=== PATIENT | female | born 1955 ===

== ENCOUNTER 2019-10-23 08:00 | Inpatient (IN) | payer BC ==
[~2019-10-23 08:00] MED LIST: Acetaminophen 325 MG Tab PO SCH; Bisacodyl 5 MG Tab PO PRN; Lactated Ringers 1,000 ML IV SCH; Lidocaine 1%/Sod Bicarbonate in NS 8.4% 1 ML Syringe IDERM PRN; Magnesium Hydroxide 400 MG/5 ML Susp 30 ML Cup PO PRN; Morphine 2 MG/ML SYRINGE IVPUSH PRN; Naloxone 0.4 MG/ML SDV IVPUSH PRN; Ondansetron 4 MG/2 ML SDV IVPUSH PRN; Sennosides 8.6 MG Tab PO PRN; Sodium Chloride 0.9% 10 ML Syringe FLUSH PRN; oxyCODONE ER 10 MG TAB.ER PO SCH
--- NOTE | 2019-10-23 10:07 | PCM.CONS ---
H&P History of Present Illness - General Date of Service: 10/23/19 Admit Problem/Dx: Admission Diagnosis/Problem Admission Diagnosis/Problem Osteoarthritis of hip Source of Information: Patient, Provider, RN, RN Notes Reviewed History Limitations: Reports: No Limitations - History of Present Illness Initial Comments - Free Text/Narative: Munira Gonzales is a 64 yo female patient of Dr. Henning who is post-operative day 0 of right TKA. Hospital medicine was consulted for post-operative medical care of the following listed medical conditions. At this time she is resting comfortably in bed. Pain is controlled. She denies any chest pain, shortness of breath, palpitations, nausea, or vomiting. She carries a history of: HTN, HLD, Chronic edema, GERD, Prior C7 fracture, Depression, Recurrent UTI, Arthritis, Hx/o ETOH abuse, Insomnia. She is a former smoker. She is a full code. Her primary care provider is Giselle Guzman NP. - Related Data Allergies/Adverse Reactions: Allergies Allergy/AdvReac Type Severity Reaction Status Date / Time animal dander Allergy Cannot Verified 10/23/19 15:08 Remember Latex, Natural Rubber Allergy Rash Verified 10/23/19 15:08 dust Allergy Cannot Uncoded 10/20/19 13:56 Remember seasonal Allergy Cannot Uncoded 10/20/19 13:56 Remember Home Medications: Home Meds amLODIPine [Norvasc] 10 mg PO DAILY 04/16/15 [History] Melatonin 5 mg PO BEDTIME PRN 02/18/18 [History] Rosuvastatin Calcium 10 mg PO DAILY 02/18/18 [History] Calcium Carbonate/Vitamin D3 [Calcium 500-Vit D3 200 Caplet] 1 tab PO DAILY 02/21/18 [History] Loratadine [Claritin] 1 tab PO DAILY 02/21/18 [History] Multivitamin [Daily Yue] 1 tab PO DAILY 02/21/18 [History] Ubidecarenone [COQ-10] 100 mg PO DAILY 02/21/18 [History] traMADol HCl [Tramadol HCl] 50 mg PO BID PRN 02/21/18 [History] Ascorbic Acid [Vitamin C] 500 mg PO DAILY 10/20/19 [History] Aspirin 81 mg PO DAILY 10/20/19 [History] Celecoxib 200 mg PO DAILY 10/20/19 [History] Cholecalciferol (Vitamin D3) [Vitamin D3] 4,000 unit PO DAILY 10/20/19 [History] Estradiol Valerate [Delestrogen] 1 dose TOP DAILY 10/20/19 [History] Pantothenic Acid/Aloe Vera [[place]-Gel] 1 dose PO DAILY 10/20/19 [History] Progesterone, Micronized [Progesterone] 100 mg PO Q48H 10/20/19 [History] Past Medical History HEENT History: Reports: Allergic Rhinitis, Impaired Vision, Sinusitis Other HEENT History: sinus infection, wears glasses Cardiovascular History: Reports: High Cholesterol, Hypertension Respiratory History: Reports: Other (See Below) Other Respiratory History: cough, URI, childhood asthma Gastrointestinal History: Reports: GERD Genitourinary History: Reports: UTI, Recurrent Other OB/BYN History: hot flashes, post menopausal Musculoskeletal History: Reports: Arthritis, Other (See Below) Other Musculoskeletal History: right leg hematoma, right femur, plantar wart shoulder pain Neurological History: Reports: Other (See Below) Other Neuro History: cervical fracture Psychiatric History: Reports: Depression Other Psychiatric History: ETOH abuse Endocrine/Metabolic History: Reports: None Hematologic History: Reports: None Immunologic History: Reports: None Oncologic (Cancer) History: Reports: None Dermatologic History: Reports: Other (See Below) Other Dermatologic History: skin neoplasm - Past Surgical History Head Surgeries/Procedures: Reports: None HEENT Surgical History: Reports: Tonsillectomy Cardiovascular Surgical History: Reports: None Respiratory Surgical History: Reports: None GI Surgical History: Reports: Appendectomy, Colonoscopy Female Surgical History: Reports: Hysterectomy Endocrine Surgical History: Reports: None Neurological Surgical History: Reports: None Musculoskeletal Surgical History: Reports: Shoulder Replacement Oncologic Surgical History: Reports: None Dermatological Surgical History: Reports: None Social & Family History - Family History Family Medical History: Noncontributory - Tobacco Use Smoking Status *Q: Former Smoker Used Tobacco, but Quit: No - Caffeine Use Caffeine Use: Reports: Soda, Tea - Recreational Drug Use Recreational Drug Use: No H&P Review of Systems - Review of Systems: Review Of Systems: See Below General: Reports: Chills (occasional ). Denies: Fever HEENT: Reports: No Symptoms. Denies: Headaches, Sore Throat Pulmonary: Reports: No Symptoms. Denies: Shortness of Breath, Wheezing, Ple uritic Chest Pain, Cough, Sputum Cardiovascular: Reports: No Symptoms. Denies: Chest Pain, Palpitations, Dyspnea on Exertion Gastrointestinal: Reports: No Symptoms. Denies: Abdominal Pain, Constipation, Diarrhea, Nausea, Vomiting Genitourinary: Reports: No Symptoms. Denies: Pain Musculoskeletal: Reports: Leg Pain Skin: Reports: No Symptoms. Denies: Cyanosis Psychiatric: Reports: No Symptoms. Denies: Confusion Neurological: Reports: Numbness, Tingling, Difficulty Walking, Gait Disturbance Hematologic/Lymphatic: Reports: No Symptoms Immunologic: Reports: No Symptoms Exam - Exam Exam: See Below - Exam Quality Assessment: DVT Prophylaxis General: Alert, Oriented, Cooperative. No: Mild Distress HEENT: Conjunctiva Clear, EACs Clear, Hearing Intact, Mucosa Moist & Nora, Posterior Pharynx Clear, PERRLA Neck: Supple, Trachea Midline Lungs: Clear to Auscultation, Normal Respiratory Effort Cardiovascular: Regular Rate, Regular Rhythm GI/Abdominal Exam: Normal Bowel Sounds, Soft, Non-Tender, No Distention (Female) Exam: Deferred Rectal (Female) Exam: Deferred Extremities: Normal Capillary Refill, Leg Pain, Limited Range of Motion, Other (Bandage on right leg. Bandage is dry and intact. Cooling pack in place. ) Peripheral Pulses: 2+: Radial (L), Radial (R), Dorsalis Pedis (L), Dorsalis Pedis (R) Skin: Warm, Dry, Intact Neurological: Cranial Nerves Intact (Grossly ) Neuro Extensive - Mental Status: Alert, Oriented x3, Normal Mood/Affect - Patient Data Lab Results Last 24 hrs: Laboratory Results - last 24 hr 10/19/19 Range/Units 15:00 COVID-19 PCR Not detected (NOT DETECT) Sepsis Event Note - Focused Exam Date Exam was Performed: 10/23/19 Time Exam was Performed: 15:09 Consult PN Assessment/Plan POD#: 0 Procedures: Procedures ASSAY OF BLOOD/URIC ACID (10/23/15) ASSAY OF LIPASE (12/11/18) ASSAY OF PREALBUMIN (10/03/19) ASSAY OF SERUM ALBUMIN (02/07/18) ASSAY THYROID STIM HORMONE (10/03/19) BREAST TOMOSYNTHESIS BI (08/08/19) COMP SCREEN MAMMOGRAM ADD-ON (03/11/16) COMPLETE CBC AUTOMATED (10/03/19) COMPLETE CBC W/AUTO DIFF WBC (12/11/18) COMPREHEN METABOLIC PANEL (10/03/19) CT HEAD/BRAIN W/O DYE (12/11/18) CT NECK SPINE W/O DYE (12/11/18) DRAIN/INJ JOINT/BURSA W/O US (08/08/19) DXA BONE DENSITY AXIAL (07/29/18) EMERGENCY DEPT VISIT (12/11/18) LIPID PANEL (10/03/19) METABOLIC PANEL TOTAL CA (02/07/18) MR-STAPH DNA AMP PROBE (02/08/18) MRI JNT OF LWR EXTRE W/O DYE (12/16/18) MRI JOINT UPR EXTREM W/O DYE (06/09/17) PROTHROMBIN TIME (10/03/19) ROUTINE VENIPUNCTURE (12/11/18) SCR MAMMO BI INCL CAD (08/08/19) THROMBOPLASTIN TIME PARTIAL (10/03/19) X-RAY EXAM CHEST 1 VIEW (12/11/18) X-RAY EXAM CHEST 2 VIEWS (06/23/19) X-RAY EXAM OF FEMUR 1 (07/09/17) X-RAY EXAM OF KNEE 3 (12/15/18) X-RAY EXAM OF SHOULDER (12/11/18) (1) S/P total knee arthroplasty SNOMED Code(s): 1992412202441, 339902488, 7210990202158 Code(s): Z96.659 - PRESENCE OF UNSPECIFIED ARTIFICIAL KNEE JOINT Priority: High Current Visit: Yes Qualifiers: Laterality: right Qualified Code(s): Z96.651 - Presence of right artificial knee joint (2) Depression SNOMED Code(s): 02275214 Code(s): F32.9 - MAJOR DEPRESSIVE DISORDER, SINGLE EPISODE, UNSPECIFIED Priority: Low Current Visit: No Qualifiers: Depression Type: other depression Qualified Code(s): F32.89 - Other specified depressive episodes (3) GERD (gastroesophageal reflux disease) SNOMED Code(s): 526279239 Code(s): K21.9 - GASTRO-ESOPHAGEAL REFLUX DISEASE WITHOUT ESOPHAGITIS Priority: Low Current Visit: No Qualifiers: Esophagitis presence: esophagitis presence not specified Qualified Code(s): K21.9 - Gastro-esophageal reflux disease without esophagitis (4) HLD (hyperlipidemia) SNOMED Code(s): 39207068 Code(s): E78.5 - HYPERLIPIDEMIA, UNSPECIFIED Priority: Low Current Visit: No Qualifiers: Hyperlipidemia type: unspecified Qualified Code(s): E78.5 - Hyperlipidemia, unspecified (5) HTN (hypertension) SNOMED Code(s): 65523321 Code(s): I10 - ESSENTIAL (PRIMARY) HYPERTENSION Priority: Medium Current Visit: No Qualifiers: Hypertension type: unspecified Qualified Code(s): I10 - Essential (primary) hypertension (6) History of alcohol abuse SNOMED Code(s): 883223190 Code(s): Z87.898 - PERSONAL HISTORY OF OTHER SPECIFIED CONDITIONS Priority: Low Current Visit: No (7) Insomnia SNOMED Code(s): 656122015 Code(s): G47.00 - INSOMNIA, UNSPECIFIED Priority: Low Current Visit: No Qualifiers: Insomnia type: unspecified Qualified Code(s): G47.00 - Insomnia, unspecified (8) Osteoarthritis SNOMED Code(s): 276339827 Code(s): M19.90 - UNSPECIFIED OSTEOARTHRITIS, UNSPECIFIED SITE Priority: High Current Visit: Yes Qualifiers: Osteoarthritis location: knee Osteoarthritis type: primary Laterality: right Qualified Code(s): M17.11 - Unilateral primary osteoarthritis, right knee (9) Chronic edema SNOMED Code(s): 361838467, 21750905, 729962917 Code(s): R60.9 - EDEMA, UNSPECIFIED Priority: Low Current Visit: No Problem List Initiated/Reviewed/Updated: Yes Plan: I/P: Acute: S/P right total knee arthroplasty - post-operative day 0 -DVT prophylaxis and pain management per primary care team -PT/OT -IS/RT -Monitor oxygen saturation -Titrate oxygen as needed -Home medications reviewed -Vital signs stable -Monitor labs -Pre-operative Hgb was 14.0 -Pre-operative GFR was >60 -Pre-operative BUN was 24 -Pre-operative 12-Lead EKG showed sinus rhythm with suspected LAD and LAE Osteoarthritis of right knee -Pain management per primary care team Chronic: HTN HLD Chronic edema GERD Prior C7 fracture Depression Recurrent UTI Arthritis Hx/o ETOH abuse Insomnia Plan: CM for discharge planning GI prophylaxis Home medications as indicated Other orders as listed above Routine AM labs She is a full code. Her PCP is Giselle Guzman NP Thank you for allowing us to participate in the care of this patient!! Requesting Provider: Dr. Henning Date Consult Requested: 10/23/19 Patient History Reviewed: Yes Admission H&P Reviewed: Yes Notified Requestor: Yes
[2019-10-23] MEDS ORDERED: Pregabalin 25 MG Cap PO SCH (10:30)
[2019-10-23] MEDS: Pregabalin 25 MG Cap PO SCH ×2 (10:34→10:35)
--- NOTE | 2019-10-23 11:29 | PCM.PREANE ---
Preanesthetic Assessment - Anesthesia/Transfusion/Family Hx Anesthesia History: Prior Anesthesia Without Reaction Family History of Anesthesia Reaction: No Transfusion History: No Prior Transfusion(s) Intubation History: Unknown - Review of Systems General: No Symptoms Pulmonary: No Symptoms (Former smoker: quit in 1978 less than 1ppd for less than 5 years./2 drinks/week.occasionally), Cough Cardiovascular: No Symptoms (HTN, elevated cholesterol), Edema (lower leg edema(left leg from old injury as a teenager)) Gastrointestinal: No Symptoms (GERD-controlled/one prilosec per month) Neurological: No Symptoms (walks with a cane due to right hip pain), Gait Disturbance Other: Reports: Easy Bruising, Sinus Problem (seasonal allergies), Neck Pain (C7 fracture November 2018: bucked off horse/no surgery required.), Depression - Physical Assessment NPO Status Date: 10/23/19 NPO Status Time: 03:30 Vital Signs: Last Vital Signs Temp 36.2 C 10/23/19 09:50 Pulse 73 10/23/19 09:50 Resp 16 10/23/19 09:50 BP 119/77 10/23/19 09:50 Pulse Ox 98 10/23/19 09:50 Height: 1.68 m Weight: 57.153 kg ASA Class: 3 Mental Status: Alert & Oriented x3 Airway Class: Mallampati = 2 Dentition: Reports: Normal Dentition, Caries Thyro-Mental Finger Breadths: 3 Mouth Opening Finger Breadths: 3 ROM/Head Extension: Full Lungs: Clear to Auscultation, Normal Respiratory Effort Cardiovascular: Regular Rate, Regular Rhythm, No Murmurs - Lab Values: Laboratory Last Values COVID-19 PCR Not detected (NOT DETECT) 10/19/19 15:00 MRSA (PCR) Negative 10/10/19 15:50 All labs reviewed and noted and within acceptable ranges to proceed with scheduled procedure. - Imaging/EKG Impressions: EKG: SR rate=64, probable left atrial enlargement. CXR: negative - Allergies Allergies/Adverse Reactions: Allergies Allergy/AdvReac Type Severity Reaction Status Date / Time animal dander Allergy Cannot Verified 10/20/19 13:56 Remember Latex, Natural Rubber Allergy Rash Verified 10/20/19 13:56 dust Allergy Cannot Uncoded 10/20/19 13:56 Remember seasonal Allergy Cannot Uncoded 06/26/20 13:56 Remember - Anesthesia Plan Pre-Op Medication Ordered: Other (preop meds all taken orally at 1034: lyrica, tylenol, oxycodone) - Acknowledgements Anesthesia Type Planned: Spinal Pt an Appropriate Candidate for the Planned Anesthesia: Yes Alternatives and Risks of Anesthesia Discussed w Pt/Guardian: Yes Pt/Guardian Understands and Agrees with Anesthesia Plan: Yes PreAnesthesia Questionnaire HEENT History: Reports: Allergic Rhinitis, Impaired Vision, Sinusitis Other HEENT History: sinus infection, wears glasses Cardiovascular History: Reports: High Cholesterol, Hypertension Respiratory History: Reports: Other (See Below) Other Respiratory History: cough, URI, childhood asthma Gastrointestinal History: Reports: GERD Genitourinary History: Reports: UTI, Recurrent Other OB/BYN History: hot flashes, post menopausal Musculoskeletal History: Reports: Arthritis, Other (See Below) Other Musculoskeletal History: right leg hematoma, right femur, plantar wart shoulder pain Neurological History: Reports: Other (See Below) Other Neuro History: cervical fracture Psychiatric History: Reports: Depression Other Psychiatric History: ETOH abuse Endocrine/Metabolic History: Reports: None Hematologic History: Reports: None Immunologic History: Reports: None Oncologic (Cancer) History: Reports: None Dermatologic History: Reports: Other (See Below) Other Dermatologic History: skin neoplasm - Past Surgical History Head Surgeries/Procedures: Reports: None HEENT Surgical History: Reports: Tonsillectomy Cardiovascular Surgical History: Reports: None Respiratory Surgical History: Reports: None GI Surgical History: Reports: Appendectomy, Colonoscopy Female Surgical History: Reports: Hysterectomy Endocrine Surgical History: Reports: None Neurological Surgical History: Reports: None Musculoskeletal Surgical History: Reports: Shoulder Replacement Oncologic Surgical History: Reports: None Dermatological Surgical History: Reports: None - SUBSTANCE USE Smoking Status *Q: Former Smoker Recreational Drug Use History: No - HOME MEDS Home Medications: Home Meds amLODIPine [Norvasc] 10 mg PO DAILY 04/16/15 [History] Melatonin 5 mg PO BEDTIME PRN 02/18/18 [History] Rosuvastatin Calcium 10 mg PO DAILY 02/18/18 [History] Calcium Carbonate/Vitamin D3 [Calcium 500-Vit D3 200 Caplet] 1 tab PO DAILY 02/21/18 [History] Loratadine [Claritin] 1 tab PO DAILY 02/21/18 [History] Multivitamin [Daily Yue] 1 tab PO DAILY 02/21/18 [History] Ubidecarenone [COQ-10] 100 mg PO DAILY 02/21/18 [History] traMADol HCl [Tramadol HCl] 50 mg PO BID PRN 02/21/18 [History] Ascorbic Acid [Vitamin C] 500 mg PO DAILY 10/20/19 [History] Aspirin 81 mg PO DAILY 10/20/19 [History] Celecoxib 200 mg PO DAILY 10/20/19 [History] Cholecalciferol (Vitamin D3) [Vitamin D3] 4,000 unit PO DAILY 10/20/19 [History] Estradiol Valerate [Delestrogen] 1 dose TOP DAILY 10/20/19 [History] Pantothenic Acid/Aloe Vera [[place]-Gel] 1 dose PO DAILY 10/20/19 [History] Progesterone, Micronized [Progesterone] 100 mg PO Q48H 10/20/19 [History] - CURRENT (IN HOUSE) MEDS Current Meds: Current Medications Acetaminophen (Tylenol) 975 mg PO ONETIME ESTRELLA Stop: 10/23/19 16:00 Last Admin: 10/23/19 10:34 Dose: 975 mg Documented by: Aspirin (Ecotrin) 325 mg PO BID ESTRELLA Bisacodyl (Dulcolax) 5 mg PO DAILY PRN PRN Reason: Constipation Cyclobenzaprine HCl (Flexeril) 10 mg PO TID PRN PRN Reason: Spasms Docusate Sodium (Colace) 100 mg PO BID ESTRELLA Famotidine (Pepcid) 20 mg PO Q12H ESTRELLA Lactated Ringer's (Ringers, Lactated) 1,000 mls @ 125 mls/hr IV ASDIRECTED [facility] Stop: 10/23/19 23:00 Last Admin: 10/23/19 10:45 Dose: 125 mls/hr Documented by: Cefazolin Sodium/Dextrose 2 gm (/ Premix) 50 mls @ 100 mls/hr IV Q8H [facility] Stop: 10/23/19 23:14 Ketorolac Tromethamine (Toradol) 15 mg IVPUSH Q6H PRN PRN Reason: Pain Lidocaine/Sodium Bicarbonate (Buffered Lidocaine 1% In Ns 8.4%) 0.25 ml IDERM ONETIME PRN PRN Reason: Prior to IV Start Stop: 10/23/19 18:00 Last Admin: 10/23/19 10:45 Dose: 0.25 ml Documented by: Magnesium Hydroxide (Milk Of Magnesia) 30 ml PO BID PRN PRN Reason: Constipation Morphine Sulfate (Morphine) 2 mg IVPUSH Q2H PRN PRN Reason: Breakthrough Pain Naloxone HCl (Narcan) 0.1 mg IVPUSH Q5M PRN PRN Reason: Oversedation Ondansetron HCl (Zofran) 4 mg IVPUSH Q6H PRN PRN Reason: Nausea/Vomiting Oxycodone HCl (Oxycontin) 10 mg PO ONETIME ESTRELLA Stop: 10/23/19 16:00 Last Admin: 10/23/19 10:34 Dose: 10 mg Documented by: Oxycodone/Acetaminophen (Percocet 325-5 Mg) 1 - 2 tab PO Q4H PRN PRN Reason: Pain Pregabalin (Lyrica) 25 mg PO ONETIME ESTRELLA Stop: 10/23/19 16:00 Last Admin: 10/23/19 10:35 Dose: 25 mg Documented by: Senna (Senna) 8.6 mg PO BID PRN PRN Reason: Constipation Sodium Chloride (Saline Flush) 10 ml FLUSH ASDIRECTED PRN PRN Reason: Keep Vein Open Stop: 10/23/19 18:00 Discontinued Medications Morphine Sulfate 8 mg/Epinephrine HCl 0.3 mg/Cefuroxime Sodium 750 mg/Ketorolac Tromethamine 30 mg/Sodium Chloride 7.9 ml 0 mg .XX ONETIME ONE Stop: 10/23/19 11:01 Pregabalin (Lyrica) 25 mg PO ONETIME ESTRELLA Stop: 10/23/19 10:31
[2019-10-23] MEDS ORDERED: fentaNYL 100 MCG/2 ML SDV ONE (11:41)
[2019-10-23] MEDS ORDERED: Ondansetron 4 MG/2 ML SDV ONE (11:41)
[2019-10-23] MEDS ORDERED: Midazolam 1 MG/ML 2 ML SDV ONE (11:41)
[2019-10-23] MEDS ORDERED: Propofol 200 MG/20 ML SDV ONE ×3 (11:41→13:14)
[2019-10-23] MEDS ORDERED: Lidocaine 1% 4 ML ONE (11:41)
[2019-10-23] MEDS ORDERED: ceFAZolin 1 GM Vial ONE (11:47)
[2019-10-23] MEDS ORDERED: Lactated Ringers 1,000 ML ONE (11:59)
[2019-10-23] MEDS ORDERED: ePHEDrine Sulfate/0.9% NaCl/Pf 25 MG/5 ML SYRINGE IV ONE (12:33)
[2019-10-23] MEDS: Iodine/Sodium Iodide 2% Tincture 30 ML Bottle ONE ×2 (12:57→13:11)
[2019-10-23] MEDS: Bupivacaine 0.25% 10 ML SDV ONE ×2 (12:57→13:17)
[2019-10-23] MEDS: ceFAZolin 1 GM Vial ONE ×2 (12:57→13:13)
[2019-10-23] MEDS: Morphine 8 MG, EPINEPHrine 0.3 MG, Cefuroxime 750 MG, Ketorolac 30 MG, Sodium Chloride ... ONE ×10 (12:59→13:17)
[2019-10-23] MEDS: Vancomycin 1 GM SDV ONE ×2 (12:59→13:18)
--- NOTE | 2019-10-23 13:53 | PCM.POSTAN ---
POST ANESTHESIA ASSESSMENT - MENTAL STATUS Mental Status: Somnolent - VITAL SIGNS Vital Signs: Last Vital Signs Temp 36.2 C 10/23/19 09:50 Pulse 73 10/23/19 09:50 Resp 16 10/23/19 09:50 BP 119/77 10/23/19 09:50 Pulse Ox 98 10/23/19 09:50 - RESPIRATORY Respiratory Status: Respiratory Rate WNL, Airway Patent, O2 Saturation Stable, Supplemental Oxygen - CARDIOVASCULAR CV Status: Pulse Rate WNL, Blood Pressure Stable - GASTROINTESTINAL GI Status: No Symptoms - PAIN Pain Score: 0 - POST OP HYDRATION Hydration Status: Adequate & Stable - OBSERVATIONS Free Text/Narrative:: no anesthesia complications noted
--- NOTE | 2019-10-23 14:37 | CR ---
Pelvis and right hip: AP view of the pelvis was obtained as well as crosstable lateral view of the right hip. Comparison: No prior pelvis or hip study. Right hip prosthesis is seen. Components are aligned. Soft tissue air is noted from the recent surgical procedure. Joint space with the left hip is preserved. Sacroiliac joints are normal. No acute fracture or other abnormality is appreciated. Impression: 1. Recently placed right hip prosthesis. 2. No abnormality is appreciated. Diagnostic code #2 This report was dictated in MDT
[2019-10-23] MEDS: Acetaminophen/oxyCODONE 325-5 MG Tab PO PRN ×2 (17:41→21:50)
[2019-10-23] MEDS ORDERED: amLODIPine 10 MG Tab PO SCH (18:00)
[2019-10-23] MEDS: Famotidine 20 MG Tab PO SCH (21:49)
[2019-10-23] MEDS: Docusate Sodium 100 MG Cap PO SCH (21:49)
[2019-10-23] MEDS: ceFAZolin 2 GM in Premix Bag 1 BAG IV SCH (21:49)
[2019-10-23] MEDS: Ketorolac 15 MG/ML SDV IVPUSH PRN (21:51)
[2019-10-24] MEDS: Acetaminophen/oxyCODONE 325-5 MG Tab PO PRN ×4 (01:44→15:47)
[2019-10-24] MEDS: Cyclobenzaprine 10 MG Tab PO PRN ×2 (01:44→13:22)
[2019-10-24] MEDS: ceFAZolin 2 GM in Premix Bag 1 BAG IV SCH ×2 (05:45→13:22)
[2019-10-24] MEDS: Ketorolac 15 MG/ML SDV IVPUSH PRN (05:46)
--- NOTE | 2019-10-24 07:21 | PCM.CONSN ---
- General Info Date of Service: 10/24/19 Admission Dx/Problem (Free Text): Admission Diagnosis/Problem Admission Diagnosis/Problem Osteoarthritis of hip Functional Status: Reports: Pain Controlled, Tolerating Diet, Ambulating, Urinating, Incentive Spirometry. Denies: New Symptoms - Review of Systems General: Reports: Chills (Has been cold since surgery). Denies: Fever HEENT: Reports: No Symptoms. Denies: Headaches, Sore Throat Pulmonary: Reports: No Symptoms. Denies: Shortness of Breath, Pleuritic Chest Pain, Cough, Sputum, Wheezing Cardiovascular: Reports: No Symptoms. Denies: Chest Pain, Palpitations, Dyspnea on Exertion Gastrointestinal: Reports: No Symptoms. Denies: Abdominal Pain, Constipation, Diarrhea, Nausea, Vomiting Genitourinary: Reports: No Symptoms. Denies: Pain Musculoskeletal: Reports: Leg Pain Skin: Reports: No Symptoms. Denies: Cyanosis Neurological: Reports: No Symptoms, Difficulty Walking, Gait Disturbance. Denies: Confusion, Numbness, Tingling Psychiatric: Reports: No Symptoms - Patient Data Vitals - Most Recent: Last Vital Signs Temp 99.0 F 10/24/19 05:16 Pulse 104 H 10/24/19 05:16 Resp 18 10/24/19 05:14 BP 104/54 L 10/24/19 05:14 Pulse Ox 95 10/24/19 05:16 Weight - Most Recent: 130 lb 3.2 oz I&O - Last 24 Hours: Intake & Output 10/23/19 10/24/19 10/24/19 22:59 06:59 14:59 Intake Total 320 800 Output Total 450 800 Balance -130 0 Lab Results Last 24 Hours: Laboratory Results - last 24 hr 10/23/19 10/24/19 10/24/19 Range/Units 10:40 05:07 05:07 WBC 9.55 (3.98-10.04) K/mm3 RBC 3.76 L (3.98-5.22) M/mm3 Hgb 10.7 L D (11.2-15.7) gm/dl Hct 33.8 L (34.1-44.9) % MCV 89.9 (79.4-94.8) fl MCH 28.5 (25.6-32.2) pg MCHC 31.7 L (32.2-35.5) g/dl RDW Std Deviation 44.9 (36.4-46.3) fL Plt Count 195 (182-369) K/mm3 MPV 10.1 (9.4-12.3) fl Sodium 137 (136-145) mEq/L Potassium 3.5 (3.5-5.1) mEq/L Chloride 102 (98-107) mEq/L Carbon Dioxide 24 (21-32) mEq/L Anion Gap 14.5 (5-15) BUN 16 (7-18) mg/dL Creatinine 0.8 (0.55-1.02) mg/dL Est Cr Clr Drug Dosing 65.61 mL/min Estimated GFR (MDRD) > 60 (>60) mL/min BUN/Creatinine Ratio 20.0 H (14-18) Glucose 112 (80-115) mg/dL Calcium 8.7 (8.5-10.1) mg/dL Total Bilirubin 0.5 (0.2-1.0) mg/dL AST 22 (15-37) U/L ALT 20 (14-59) U/L Alkaline Phosphatase 61 (46-116) U/L Total Protein 6.4 (6.4-8.2) g/dl Albumin 3.6 (3.4-5.0) g/dl Globulin 2.8 gm/dL Albumin/Globulin Ratio 1.3 (1-2) Blood Type O NEGATIVE Gel Antibody Screen Negative Med Orders - Current: Current Medications Amlodipine Besylate (Norvasc) 10 mg PO QPM [facility] Last Admin: 10/23/19 17:29 Dose: 10 mg Documented by: Aspirin (Ecotrin) 325 mg PO BID [facility] Bisacodyl (Dulcolax) 5 mg PO DAILY PRN PRN Reason: Constipation Calcium Carbonate (Calcium Carbonate/Vitamin D 600 Mg-200 Unit) 1 tab PO DAILY@1200 [facility] Cholecalciferol (Vitamin D3) 100 mcg PO DAILY [facility] Cyclobenzaprine HCl (Flexeril) 10 mg PO TID PRN PRN Reason: Spasms Last Admin: 10/24/19 01:44 Dose: 10 mg Documented by: Docusate Sodium (Colace) 100 mg PO BID [facility] Last Admin: 10/23/19 21:49 Dose: 100 mg Documented by: Famotidine (Pepcid) 20 mg PO Q12H [facility] Last Admin: 10/23/19 21:49 Dose: 20 mg Documented by: Cefazolin Sodium/Dextrose 2 gm (/ Premix) 50 mls @ 100 mls/hr IV Q8H [facility] Stop: 10/24/19 13:29 Last Admin: 10/24/19 05:45 Dose: 100 mls/hr Documented by: Ketorolac Tromethamine (Toradol) 15 mg IVPUSH Q6H PRN PRN Reason: Pain Last Admin: 10/24/19 05:46 Dose: 15 mg Documented by: Loratadine (Claritin) 10 mg PO DAILY [facility] Magnesium Hydroxide (Milk Of Magnesia) 30 ml PO BID PRN PRN Reason: Constipation Morphine Sulfate (Morphine) 2 mg IVPUSH Q2H PRN PRN Reason: Breakthrough Pain Naloxone HCl (Narcan) 0.1 mg IVPUSH Q5M PRN PRN Reason: Oversedation Ondansetron HCl (Zofran) 4 mg IVPUSH Q6H PRN PRN Reason: Nausea/Vomiting Oxycodone/Acetaminophen (Percocet 325-5 Mg) 1 - 2 tab PO Q4H PRN PRN Reason: Pain Last Admin: 10/24/19 05:45 Dose: 2 tab Documented by: Rosuvastatin Calcium (Crestor) 10 mg PO DAILY [facility] Senna (Senna) 8.6 mg PO BID PRN PRN Reason: Constipation Last Admin: 10/23/19 17:42 Dose: 8.6 mg Documented by: Discontinued Medications Acetaminophen (Tylenol) 975 mg PO ONETIME [facility] Stop: 10/23/19 16:00 Last Admin: 10/23/19 10:34 Dose: 975 mg Documented by: Bupivacaine HCl (Sensorcaine-Mpf 0.25%) Confirm Administered Dose 30 ml .ROUTE .STK-MED ONE Stop: 10/23/19 11:48 Last Admin: 10/23/19 13:17 Dose: 30 ml Documented by: Cefazolin Sodium (Ancef) Confirm Administered Dose 2 gm .ROUTE .STK-MED ONE Stop: 10/23/19 11:43 Last Admin: 10/23/19 13:13 Dose: 2 gm Documented by: Cefazolin Sodium (Ancef) Confirm Administered Dose 2 gm .ROUTE .STK-MED ONE Stop: 10/23/19 11:48 Morphine Sulfate 8 mg/Epinephrine HCl 0.3 mg/Cefuroxime Sodium 750 mg/Ketorolac Tromethamine 30 mg/Sodium Chloride 7.9 ml 0 mg .XX ONETIME ONE Stop: 10/23/19 11:01 Last Admin: 10/23/19 13:17 Dose: 788.3 mg Documented by: Ephedrine Sulfate (Ephedrine 25 Mg/5 Ml Syringe) Confirm Administered Dose 25 mg IV .STK-MED ONE Stop: 10/23/19 12:34 Fentanyl (Sublimaze) Confirm Administered Dose 100 mcg .ROUTE .STK-MED ONE Stop: 10/23/19 11:42 Lactated Ringer's (Ringers, Lactated) 1,000 mls @ 125 mls/hr IV ASDIRECTED [facility] Stop: 10/23/19 23:00 Last Admin: 10/23/19 10:45 Dose: 125 mls/hr Documented by: Lidocaine HCl (Xylocaine-Mpf 1%) Confirm Administered Dose 4 mls @ as directed .ROUTE .STK-MED ONE Stop: 10/23/19 11:42 Lactated Ringer's (Ringers, Lactated) Confirm Administered Dose 1,000 mls @ as directed .ROUTE .STK-MED ONE Stop: 10/23/19 12:00 Iodine (Iodine 2% Mild Tincture) Confirm Administered Dose 30 ml .ROUTE .STK-MED ONE Stop: 10/23/19 11:48 Last Admin: 10/23/19 13:11 Dose: 18 ml Documented by: Lidocaine/Sodium Bicarbonate (Buffered Lidocaine 1% In Ns 8.4%) 0.25 ml IDERM ONETIME PRN PRN Reason: Prior to IV Start Stop: 10/23/19 18:00 Last Admin: 10/23/19 10:45 Dose: 0.25 ml Documented by: Midazolam HCl (Versed 1 Mg/Ml) Confirm Administered Dose 2 mg .ROUTE .STK-MED ONE Stop: 10/23/19 11:42 Miscellaneous Medication (Phenylephrine 1 Mg/10 Ml-Ns) Confirm Administered Dose 1 mg IV .STK-MED ONE Stop: 10/23/19 12:53 Ondansetron HCl (Zofran) Confirm Administered Dose 4 mg .ROUTE .STK-MED ONE Stop: 10/23/19 11:42 Oxycodone HCl (Oxycontin) 10 mg PO ONETIME [facility] Stop: 10/23/19 16:00 Last Admin: 10/23/19 10:34 Dose: 10 mg Documented by: Pregabalin (Lyrica) 25 mg PO ONETIME [facility] Stop: 10/23/19 16:00 Last Admin: 10/23/19 10:35 Dose: 25 mg Documented by: Pregabalin (Lyrica) 25 mg PO ONETIME [facility] Stop: 10/23/19 10:31 Propofol (Diprivan 20 Ml) Confirm Administered Dose 200 mg .ROUTE .STK-MED ONE Stop: 10/23/19 11:42 Propofol (Diprivan 20 Ml) Confirm Administered Dose 200 mg .ROUTE .STK-MED ONE Stop: 10/23/19 12:46 Propofol (Diprivan 20 Ml) Confirm Administered Dose 200 mg .ROUTE .STK-MED ONE Stop: 10/23/19 13:15 Sodium Chloride (Saline Flush) 10 ml FLUSH ASDIRECTED PRN PRN Reason: Keep Vein Open Stop: 10/23/19 18:00 Tranexamic Acid (Cyklokapron) Confirm Administered Dose 1,000 mg .ROUTE .STK-MED ONE Stop: 10/23/19 11:48 Last Admin: 10/23/19 13:18 Dose: 1,000 mg Documented by: Vancomycin HCl (Vancomycin) Confirm Administered Dose 1 gm .ROUTE .STK-MED ONE Stop: 10/23/19 11:48 Last Admin: 10/23/19 13:18 Dose: 1 gm Documented by: - Exam Quality Assessment: DVT Prophylaxis. No: Supplemental Oxygen, Urine Catheter General: Alert, Oriented, Cooperative, No Acute Distress HEENT: Pupils Equal, Pupils Reactive, Mucous Membr. Moist/[place] Neck: Supple, Trachea Midline Lungs: Clear to Auscultation, Normal Respiratory Effort Cardiovascular: Regular Rate, Regular Rhythm GI/Abdominal Exam: Normal Bowel Sounds, Soft, Non-Tender, No Distention (Female) Exam: Deferred Back Exam: Normal Inspection, Full Range of Motion Extremities: Normal Capillary Refill, Leg Pain, Limited Range of Motion, Other (Bandage in place on right leg. Cooling pack in place ) Peripheral Pulses: 3+: Radial (R), Femoral (L), Dorsalis Pedis (L), Dorsalis Pedis (R) Skin: Warm, Dry, Intact Wound/Incisions: Dressing Dry and Intact Neurological: No New Focal Deficit Psy/Mental Status: Alert, Normal Affect, Normal Mood Sepsis Event Note - Evaluation Sepsis Screening Result: No Definite Risk - Focused Exam Vital Signs: Vital Signs Temp Pulse Resp BP Pulse Ox 10/24/19 05:16 99.0 F 104 H 95 10/24/19 05:14 100.8 F H 107 H 18 104/54 L 95 10/24/19 00:15 98.4 F 79 12 91/68 100 10/23/19 19:45 99.0 F 75 12 110/80 99 Date Exam was Performed: 10/24/19 Time Exam was Performed: 13:18 Consult PN Assessment/Plan POD#: 1 Procedures: Procedures ASSAY OF BLOOD/URIC ACID (10/23/15) ASSAY OF LIPASE (12/11/18) ASSAY OF PREALBUMIN (10/03/19) ASSAY OF SERUM ALBUMIN (02/07/18) ASSAY THYROID STIM HORMONE (10/03/19) BREAST TOMOSYNTHESIS BI (08/08/19) COMP SCREEN MAMMOGRAM ADD-ON (03/11/16) COMPLETE CBC AUTOMATED (10/03/19) COMPLETE CBC W/AUTO DIFF WBC (12/11/18) COMPREHEN METABOLIC PANEL (10/03/19) CT HEAD/BRAIN W/O DYE (12/11/18) CT NECK SPINE W/O DYE (12/11/18) DRAIN/INJ JOINT/BURSA W/O US (08/08/19) DXA BONE DENSITY AXIAL (07/29/18) EMERGENCY DEPT VISIT (12/11/18) LIPID PANEL (10/03/19) METABOLIC PANEL TOTAL CA (02/07/18) MR-STAPH DNA AMP PROBE (02/08/18) MRI JNT OF LWR EXTRE W/O DYE (12/16/18) MRI JOINT UPR EXTREM W/O DYE (06/09/17) PROTHROMBIN TIME (10/03/19) ROUTINE VENIPUNCTURE (12/11/18) SCR MAMMO BI INCL CAD (08/08/19) THROMBOPLASTIN TIME PARTIAL (10/03/19) X-RAY EXAM CHEST 1 VIEW (12/11/18) X-RAY EXAM CHEST 2 VIEWS (06/23/19) X-RAY EXAM OF FEMUR 1 (07/09/17) X-RAY EXAM OF KNEE 3 (12/15/18) X-RAY EXAM OF SHOULDER (12/11/18) (1) S/P total knee arthroplasty SNOMED Code(s): 9445809264234, 432905480, 7794516040991 Code(s): Z96.659 - PRESENCE OF UNSPECIFIED ARTIFICIAL KNEE JOINT Priority: High Current Visit: Yes Qualifiers: Laterality: right Qualified Code(s): Z96.651 - Presence of right artificial knee joint (2) Depression SNOMED Code(s): 64378805 Code(s): F32.9 - MAJOR DEPRESSIVE DISORDER, SINGLE EPISODE, UNSPECIFIED Priority: Low Current Visit: No Qualifiers: Depression Type: other depression Qualified Code(s): F32.89 - Other specified depressive episodes (3) GERD (gastroesophageal reflux disease) SNOMED Code(s): 401850899 Code(s): K21.9 - GASTRO-ESOPHAGEAL REFLUX DISEASE WITHOUT ESOPHAGITIS Priority: Low Current Visit: No Qualifiers: Esophagitis presence: esophagitis presence not specified Qualified Code(s): K21.9 - Gastro-esophageal reflux disease without esophagitis (4) HLD (hyperlipidemia) SNOMED Code(s): 88577593 Code(s): E78.5 - HYPERLIPIDEMIA, UNSPECIFIED Priority: Low Current Visit: No Qualifiers: Hyperlipidemia type: unspecified Qualified Code(s): E78.5 - Hyperlipidemia, unspecified (5) HTN (hypertension) SNOMED Code(s): 80007885 Code(s): I10 - ESSENTIAL (PRIMARY) HYPERTENSION Priority: Medium Current Visit: No Qualifiers: Hypertension type: unspecified Qualified Code(s): I10 - Essential (primary) hypertension (6) History of alcohol abuse SNOMED Code(s): 128992102 Code(s): Z87.898 - PERSONAL HISTORY OF OTHER SPECIFIED CONDITIONS Priority: Low Current Visit: No (7) Insomnia SNOMED Code(s): 645690139 Code(s): G47.00 - INSOMNIA, UNSPECIFIED Priority: Low Current Visit: No Qualifiers: Insomnia type: unspecified Qualified Code(s): G47.00 - Insomnia, unspecified (8) Osteoarthritis SNOMED Code(s): 327893823 Code(s): M19.90 - UNSPECIFIED OSTEOARTHRITIS, UNSPECIFIED SITE Priority: High Current Visit: Yes Qualifiers: Osteoarthritis location: knee Osteoarthritis type: primary Laterality: right Qualified Code(s): M17.11 - Unilateral primary osteoarthritis, right knee (9) Chronic edema SNOMED Code(s): 165561845, 26689332, 058716647 Code(s): R60.9 - EDEMA, UNSPECIFIED Priority: Low Current Visit: No Problem List Initiated/Reviewed/Updated: Yes My Orders Last 24 Hours: My Active Orders 10/23/19 18:00 amLODIPine [Norvasc] 10 mg PO QPM 10/24/19 09:00 Cholecalciferol (Vitamin D3) [Vitamin D3] 100 mcg PO DAILY Loratadine [Claritin] 10 mg PO DAILY Rosuvastatin [Crestor] 10 mg PO DAILY 10/24/19 12:00 Calcium Carbonate/Vitamin D3 [Calcium Carbonate/Vitamin D 600 MG-200 Unit] 1 tab PO DAILY@1200 Plan: I/P: Acute: S/P right total knee arthroplasty - post-operative day 1 -DVT prophylaxis and pain management per primary care team -PT/OT -IS/RT -Monitor oxygen saturation -Titrate oxygen as needed -Home medications reviewed -Vital signs stable -Monitor labs -Pre-operative Hgb was 14.0; Now 10.7 -Pre-operative GFR was >60; Now >60 -Pre-operative BUN was 24; Now 16 -Pre-operative 12-Lead EKG showed sinus rhythm with suspected LAD and LAE Osteoarthritis of right knee -Pain management per primary care team Chronic: HTN HLD Chronic edema GERD Prior C7 fracture Depression Recurrent UTI Arthritis Hx/o ETOH abuse Insomnia Plan: CM for discharge planning GI prophylaxis Home medications as indicated Other orders as listed above Routine AM labs She is a full code. Her PCP is Giselle Guzman NP From a hospitalist standpoint Munira is doing well. She has been up ambulating and working with therapies. Her pain is controlled. Her labs remain stable. Her BP was a bit low but she was given a 500ml fluid bolus and she was not orthostatic. She has urinated and is off of oxygen. She is cleared for discharge pending primary team and PT/OT agreement. Thank you for allowing us to participate in the care of this patient!!
--- NOTE | 2019-10-24 08:21 | PCM.SURGPN ---
- General Info Date of Service: 10/24/19 POD#: 1 Functional Status: Reports: Pain Controlled, Tolerating Diet, Ambulating, Urinating, Incentive Spirometry, Other (The pt states she is doing well.) - Patient Data Vitals - Most Recent: Last Vital Signs Temp 99.0 F 10/24/19 05:16 Pulse 104 H 10/24/19 05:16 Resp 18 10/24/19 05:14 BP 104/54 L 10/24/19 05:14 Pulse Ox 95 10/24/19 05:16 Weight - Most Recent: 130 lb 3.2 oz I&O - Last 24 Hours: Intake & Output 10/23/19 10/24/19 10/24/19 22:59 06:59 14:59 Intake Total 320 800 Output Total 450 800 Balance -130 0 Lab Results Last 24 Hrs: Laboratory Results - last 24 hr 10/23/19 10/24/19 10/24/19 Range/Units 10:40 05:07 05:07 WBC 9.55 (3.98-10.04) K/mm3 RBC 3.76 L (3.98-5.22) M/mm3 Hgb 10.7 L D (11.2-15.7) gm/dl Hct 33.8 L (34.1-44.9) % MCV 89.9 (79.4-94.8) fl MCH 28.5 (25.6-32.2) pg MCHC 31.7 L (32.2-35.5) g/dl RDW Std Deviation 44.9 (36.4-46.3) fL Plt Count 195 (182-369) K/mm3 MPV 10.1 (9.4-12.3) fl Sodium 137 (136-145) mEq/L Potassium 3.5 (3.5-5.1) mEq/L Chloride 102 (98-107) mEq/L Carbon Dioxide 24 (21-32) mEq/L Anion Gap 14.5 (5-15) BUN 16 (7-18) mg/dL Creatinine 0.8 (0.55-1.02) mg/dL Est Cr Clr Drug Dosing 65.61 mL/min Estimated GFR (MDRD) > 60 (>60) mL/min BUN/Creatinine Ratio 20.0 H (14-18) Glucose 112 (80-115) mg/dL Calcium 8.7 (8.5-10.1) mg/dL Total Bilirubin 0.5 (0.2-1.0) mg/dL AST 22 (15-37) U/L ALT 20 (14-59) U/L Alkaline Phosphatase 61 (46-116) U/L Total Protein 6.4 (6.4-8.2) g/dl Albumin 3.6 (3.4-5.0) g/dl Globulin 2.8 gm/dL Albumin/Globulin Ratio 1.3 (1-2) Blood Type O NEGATIVE Gel Antibody Screen Negative Med Orders - Current: Current Medications Amlodipine Besylate (Norvasc) 10 mg PO QPM [facility] Last Admin: 10/23/19 17:29 Dose: 10 mg Documented by: Aspirin (Ecotrin) 325 mg PO BID [facility] Bisacodyl (Dulcolax) 5 mg PO DAILY PRN PRN Reason: Constipation Calcium Carbonate (Calcium Carbonate/Vitamin D 600 Mg-200 Unit) 1 tab PO DAILY@1200 [facility] Cholecalciferol (Vitamin D3) 100 mcg PO DAILY [facility] Cyclobenzaprine HCl (Flexeril) 10 mg PO TID PRN PRN Reason: Spasms Last Admin: 10/24/19 01:44 Dose: 10 mg Documented by: Docusate Sodium (Colace) 100 mg PO BID [facility] Last Admin: 10/23/19 21:49 Dose: 100 mg Documented by: Famotidine (Pepcid) 20 mg PO Q12H [facility] Last Admin: 10/23/19 21:49 Dose: 20 mg Documented by: Cefazolin Sodium/Dextrose 2 gm (/ Premix) 50 mls @ 100 mls/hr IV Q8H [facility] Stop: 10/24/19 13:29 Last Admin: 10/24/19 05:45 Dose: 100 mls/hr Documented by: Ketorolac Tromethamine (Toradol) 15 mg IVPUSH Q6H PRN PRN Reason: Pain Last Admin: 10/24/19 05:46 Dose: 15 mg Documented by: Loratadine (Claritin) 10 mg PO DAILY [facility] Magnesium Hydroxide (Milk Of Magnesia) 30 ml PO BID PRN PRN Reason: Constipation Morphine Sulfate (Morphine) 2 mg IVPUSH Q2H PRN PRN Reason: Breakthrough Pain Naloxone HCl (Narcan) 0.1 mg IVPUSH Q5M PRN PRN Reason: Oversedation Ondansetron HCl (Zofran) 4 mg IVPUSH Q6H PRN PRN Reason: Nausea/Vomiting Oxycodone/Acetaminophen (Percocet 325-5 Mg) 1 - 2 tab PO Q4H PRN PRN Reason: Pain Last Admin: 10/24/19 05:45 Dose: 2 tab Documented by: Rosuvastatin Calcium (Crestor) 10 mg PO DAILY [facility] Senna (Senna) 8.6 mg PO BID PRN PRN Reason: Constipation Last Admin: 10/23/19 17:42 Dose: 8.6 mg Documented by: Discontinued Medications Acetaminophen (Tylenol) 975 mg PO ONETIME [facility] Stop: 10/23/19 16:00 Last Admin: 10/23/19 10:34 Dose: 975 mg Documented by: Bupivacaine HCl (Sensorcaine-Mpf 0.25%) Confirm Administered Dose 30 ml .ROUTE .STK-MED ONE Stop: 10/23/19 11:48 Last Admin: 10/23/19 13:17 Dose: 30 ml Documented by: Cefazolin Sodium (Ancef) Confirm Administered Dose 2 gm .ROUTE .STK-MED ONE Stop: 10/23/19 11:43 Last Admin: 10/23/19 13:13 Dose: 2 gm Documented by: Cefazolin Sodium (Ancef) Confirm Administered Dose 2 gm .ROUTE .STK-MED ONE Stop: 10/23/19 11:48 Morphine Sulfate 8 mg/Epinephrine HCl 0.3 mg/Cefuroxime Sodium 750 mg/Ketorolac Tromethamine 30 mg/Sodium Chloride 7.9 ml 0 mg .XX ONETIME ONE Stop: 10/23/19 11:01 Last Admin: 10/23/19 13:17 Dose: 788.3 mg Documented by: Ephedrine Sulfate (Ephedrine 25 Mg/5 Ml Syringe) Confirm Administered Dose 25 mg IV .STK-MED ONE Stop: 10/23/19 12:34 Fentanyl (Sublimaze) Confirm Administered Dose 100 mcg .ROUTE .STK-MED ONE Stop: 10/23/19 11:42 Lactated Ringer's (Ringers, Lactated) 1,000 mls @ 125 mls/hr IV ASDIRECTED [facility] Stop: 10/23/19 23:00 Last Admin: 10/23/19 10:45 Dose: 125 mls/hr Documented by: Lidocaine HCl (Xylocaine-Mpf 1%) Confirm Administered Dose 4 mls @ as directed .ROUTE .STK-MED ONE Stop: 10/23/19 11:42 Lactated Ringer's (Ringers, Lactated) Confirm Administered Dose 1,000 mls @ as directed .ROUTE .STK-MED ONE Stop: 10/23/19 12:00 Iodine (Iodine 2% Mild Tincture) Confirm Administered Dose 30 ml .ROUTE .STK-MED ONE Stop: 10/23/19 11:48 Last Admin: 10/23/19 13:11 Dose: 18 ml Documented by: Lidocaine/Sodium Bicarbonate (Buffered Lidocaine 1% In Ns 8.4%) 0.25 ml IDERM ONETIME PRN PRN Reason: Prior to IV Start Stop: 10/23/19 18:00 Last Admin: 10/23/19 10:45 Dose: 0.25 ml Documented by: Midazolam HCl (Versed 1 Mg/Ml) Confirm Administered Dose 2 mg .ROUTE .STK-MED ONE Stop: 10/23/19 11:42 Miscellaneous Medication (Phenylephrine 1 Mg/10 Ml-Ns) Confirm Administered Dose 1 mg IV .STK-MED ONE Stop: 10/23/19 12:53 Ondansetron HCl (Zofran) Confirm Administered Dose 4 mg .ROUTE .STK-MED ONE Stop: 10/23/19 11:42 Oxycodone HCl (Oxycontin) 10 mg PO ONETIME [facility] Stop: 10/23/19 16:00 Last Admin: 10/23/19 10:34 Dose: 10 mg Documented by: Pregabalin (Lyrica) 25 mg PO ONETIME [facility] Stop: 10/23/19 16:00 Last Admin: 10/23/19 10:35 Dose: 25 mg Documented by: Pregabalin (Lyrica) 25 mg PO ONETIME [facility] Stop: 10/23/19 10:31 Propofol (Diprivan 20 Ml) Confirm Administered Dose 200 mg .ROUTE .STK-MED ONE Stop: 10/23/19 11:42 Propofol (Diprivan 20 Ml) Confirm Administered Dose 200 mg .ROUTE .STK-MED ONE Stop: 10/23/19 12:46 Propofol (Diprivan 20 Ml) Confirm Administered Dose 200 mg .ROUTE .STK-MED ONE Stop: 10/23/19 13:15 Sodium Chloride (Saline Flush) 10 ml FLUSH ASDIRECTED PRN PRN Reason: Keep Vein Open Stop: 10/23/19 18:00 Tranexamic Acid (Cyklokapron) Confirm Administered Dose 1,000 mg .ROUTE .STK-MED ONE Stop: 10/23/19 11:48 Last Admin: 10/23/19 13:18 Dose: 1,000 mg Documented by: Vancomycin HCl (Vancomycin) Confirm Administered Dose 1 gm .ROUTE .STK-MED ONE Stop: 10/23/19 11:48 Last Admin: 10/23/19 13:18 Dose: 1 gm Documented by: - Exam Wound/Incisions: Dressing Dry and Intact General: Alert, Cooperative, No Acute Distress Lungs: Normal Respiratory Effort Extremities: Other (NVS intact for BLE. Donna's negative. Right thigh soft.) Sepsis Event Note - Evaluation Sepsis Screening Result: No Definite Risk - Focused Exam Vital Signs: Vital Signs Temp Pulse Resp BP Pulse Ox 10/24/19 05:16 99.0 F 104 H 95 10/24/19 05:14 100.8 F H 107 H 18 104/54 L 95 10/24/19 00:15 98.4 F 79 12 91/68 100 Date Exam was Performed: 10/24/19 Time Exam was Performed: 08:20 - Problem List Review Problem List Initiated/Reviewed/Updated: Yes - My Orders Last 24 Hours: Active Orders 24 hr Category Date Time Status Communication Order [RC] ROUTINE Care 10/23/19 13:52 Active Cooling Warming Measures [RC] ASDIRECTED Care 10/23/19 13:52 Active Notify Provider [RC] ASDIRECTED Care 10/23/19 13:52 Active Oxygen Therapy [RC] ASDIRECTED Care 10/23/19 13:52 Active Pulse Oximetry [RC] ASDIRECTED Care 10/23/19 13:52 Active Ready for Discharge [RC] PER UNIT ROUTINE Care 10/24/19 08:19 Ordered Regular Diet [DIET] Diet 10/23/19 Lunch Active Aspirin [Ecotrin] Med 10/24/19 09:00 Active 325 mg PO BID Calcium Carbonate/Vitamin D3 [Calcium Carbonate/Vitamin Med 10/24/19 12:00 Active D 600 MG-200 Unit] 1 tab PO DAILY@1200 Cholecalciferol (Vitamin D3) [Vitamin D3] Med 10/24/19 09:00 Active 100 mcg PO DAILY Docusate Sodium [Colace] Med 10/23/19 21:00 Active 100 mg PO BID Famotidine [Pepcid] Med 10/23/19 21:00 Active 20 mg PO Q12H Ketorolac [Toradol] Med 10/23/19 16:00 Active 15 mg IVPUSH Q6H PRN Loratadine [Claritin] Med 10/24/19 09:00 Active 10 mg PO DAILY Rosuvastatin [Crestor] Med 10/24/19 09:00 Active 10 mg PO DAILY amLODIPine [Norvasc] Med 10/23/19 18:00 Active 10 mg PO QPM ceFAZolin [Ancef] 2 gm Med 10/23/19 21:00 Active Premix Bag 1 bag IV Q8H Medication Orders Amlodipine Besylate (Norvasc) 10 mg PO QPM [facility] Last Admin: 10/23/19 17:29 Dose: 10 mg Documented by: MARISSA Aspirin (Ecotrin) 325 mg PO BID [facility] Bisacodyl (Dulcolax) 5 mg PO DAILY PRN PRN Reason: Constipation Calcium Carbonate (Calcium Carbonate/Vitamin D 600 Mg-200 Unit) 1 tab PO DAILY@1200 [facility] Cholecalciferol (Vitamin D3) 100 mcg PO DAILY [facility] Cyclobenzaprine HCl (Flexeril) 10 mg PO TID PRN PRN Reason: Spasms Last Admin: 10/24/19 01:44 Dose: 10 mg Documented by: NUVIA Docusate Sodium (Colace) 100 mg PO BID [facility] Last Admin: 10/23/19 21:49 Dose: 100 mg Documented by: NUVIA Famotidine (Pepcid) 20 mg PO Q12H [facility] Last Admin: 10/23/19 21:49 Dose: 20 mg Documented by: NUVIA Cefazolin Sodium/Dextrose 2 gm (/ Premix) 50 mls @ 100 mls/hr IV Q8H [facility] Stop: 10/24/19 13:29 Last Admin: 10/24/19 05:45 Dose: 100 mls/hr Documented by: Infusion: 10/23/19 22:19 Dose: 100 mls/hr Documented by: Admin: 10/23/19 21:49 Dose: 100 mls/hr Documented by: NUVIA Ketorolac Tromethamine (Toradol) 15 mg IVPUSH Q6H PRN PRN Reason: Pain Last Admin: 10/24/19 05:46 Dose: 15 mg Documented by: Admin: 10/23/19 21:51 Dose: 15 mg Documented by: NUVIA Loratadine (Claritin) 10 mg PO DAILY [facility] Magnesium Hydroxide (Milk Of Magnesia) 30 ml PO BID PRN PRN Reason: Constipation Morphine Sulfate (Morphine) 2 mg IVPUSH Q2H PRN PRN Reason: Breakthrough Pain Naloxone HCl (Narcan) 0.1 mg IVPUSH Q5M PRN PRN Reason: Oversedation Ondansetron HCl (Zofran) 4 mg IVPUSH Q6H PRN PRN Reason: Nausea/Vomiting Oxycodone/Acetaminophen (Percocet 325-5 Mg) 1 - 2 tab PO Q4H PRN PRN Reason: Pain Last Admin: 10/24/19 05:45 Dose: 2 tab Documented by: Admin: 10/24/19 01:44 Dose: 2 tab Documented by: Admin: 10/23/19 21:50 Dose: 2 tab Documented by: Admin: 10/23/19 17:41 Dose: 2 tab Documented by: MARISSA Rosuvastatin Calcium (Crestor) 10 mg PO DAILY [facility] Senna (Senna) 8.6 mg PO BID PRN PRN Reason: Constipation Last Admin: 10/23/19 17:42 Dose: 8.6 mg Documented by: MARISSA - Assessment Assessment (Free Text/Narrative):: POD#1 - right CECELIA - Plan Plan (Free Text/Narrative):: 1. Hgb 10.7. 2. Discharge to home today if cleared by Hospitalist service. 3. CECELIA precautions. Outpatient therapy. 4. 325mg ASA PO BID, frequent mobility, TEDs. The pt's case was discussed with Dr. Henning.
[2019-10-24] MEDS ORDERED: Cholecalciferol (Vitamin D3) 25 MCG Tab PO SCH (09:00)
[2019-10-24] MEDS ORDERED: Loratadine 10 MG Tab PO SCH (09:00)
[2019-10-24] MEDS ORDERED: Rosuvastatin 10 MG Tab PO SCH (09:00)
[2019-10-24] MEDS ORDERED: Aspirin 325 MG Tab.EC PO SCH (09:00)
[2019-10-24] MEDS: Docusate Sodium 100 MG Cap PO SCH (09:04)
[2019-10-24] MEDS: Famotidine 20 MG Tab PO SCH (09:04)
[2019-10-24] MEDS ORDERED: Sodium Chloride 0.9% 500 ML IV ONE (09:31)
--- NOTE | 2019-10-24 10:58 | PCM48HPAN ---
Post Anesthesia Note - EVALUATION WITHIN 48HRS OF ANESTHETIC Vital Signs in Normal Range: Yes Patient Participated in Evaluation: Yes Respiratory Function Stable: Yes Airway Patent: Yes Cardiovascular Function Stable: Yes Hydration Status Stable: Yes Pain Control Satisfactory: Yes Nausea and Vomiting Control Satisfactory: Yes Mental Status Recovered: Yes Vital Signs: Last Vital Signs Temp 37.3 C 10/24/19 08:00 Pulse 80 10/24/19 08:00 Resp 14 10/24/19 08:00 BP 93/52 L 10/24/19 09:02 Pulse Ox 98 10/24/19 08:00 - COMMENTS/OBSERVATIONS Free Text/Narrative:: no anesthesia complications noted
[2019-10-24] MEDS ORDERED: Calcium Carbonate/Vitamin D3 600 MG-200 Units Tab PO SCH (12:00)
[2019-10-24 19:23] VITALS: BP 92/78; PULSE 103
--- NOTE | 2019-10-25 09:42 | PCM.DCSUM1 ---
Discharge Summary - Hospital Course Brief History: Munira is a 64 yo female who underwent right CECEILA with Dr. Henning on 10-23-2019. The procedure was completed under spinal anesthesia with sedation. The pt tolerated the procedure well and was admitted to the Medical-Surgical Unit. Medical management was provided by the Hospitalist service. The pt's Hospital course was remarkable for hypotension which was evaluated and treated by the Hospitalist service. The pt's Hgb on POD#1 was 10.7. On POD#1, 325mg ASA BID was initiated for VTE prophylaxis. SCDs and TEDs were also ordered. A Mepilex dressing was placed at the incision site at the time of surgery and remained clean and dry. The pt participated in P.T. and O.T. and progressed well. She followed the CECELIA precautions. The pt was allowed to WBAT and used a FWW for mobility. On POD#1, the pt was deemed appropriate to discharge to home with her . - Discharge Data Discharge Date: 10/24/19 Discharge Disposition: Home, Self-Care 01 Condition: Good - Referral to Home Health Primary Care Physician: Giselle Guzman NP - Patient Summary/Data Consults: Consultations 10/23/19 06:40 OT Evaluation and Treatment [CONS] Routine PT Evaluation and Treatment [CONS] Routine 10/23/19 06:41 Consult to Physician [CONS] Routine - Patient Instructions Diet: Usual Diet as Tolerated Activity: Apply Ice, As Tolerated, Elevate Extremity, Full Weight Bearing Activity, Other: Follow the total hip precautions. Driving: Do Not Drive Showering/Bathing: May Shower Wound/Incision Care: Keep Operative Site/Wound Site Clean and Dry, Do NOT Change Dressing Notify Provider of: Fever, Increased Pain, Swelling and Redness, Drainage, Nausea and/or Vomiting Other/Special Instructions: Please get up and moving around EVERY HOUR while awake. This helps to prevent blood clots. Please use your walker and have help with mobility as needed. Take a short walk in your home every hour while awake. Please take 325mg aspirin TWICE daily. The aspirin is being used for blood clot prevention and not for pain management so please do not miss a dose of the medication. You could use a medication like Pepcid or Tagamet and a medication like Prilosec or Nexium to protect your stomach while you are using the aspirin. At home, please complete the exercises that you learned during the Hospital stay. Schedule for physical therapy. Use the pain medication as needed. The medication may cause drowsiness and constipation. Contact your primary care provider for instructions if you are constipated. You may use a stool softener like docusate sodium or Colace 100mg twice daily and/or a laxative like Miralax daily for constipation. Increase your water and fiber intake while you are using the pain medication. Discontinue use of the pain medication as soon as able. Please do not use other medications that may cause drowsiness (other pain medications, anxiety pills, cold medications, sleeping pills, etc) while using the prescription pain medication. Do not use alcohol while using the pain medication. You may use acetaminophen or Tylenol for pain management, however, please ensure you are not using over 4000 mg or 4 grams of acetaminophen per day from all sources. Your pain medication has 325mg of acetaminophen per tablet. At this time, please do not use ibuprofen (Motrin, Advil) or naproxen (Aleve) for pain management as you are using the aspirin. When the aspirin course is completed in 4 to 6 weeks, you could use ibuprofen or naproxen for pain management (if this is allowed by your primary care provider). Wear the LUISITO hose during the day and you may remove these at night. Elevate the limb to decrease swelling. Place ice to the area often. Place a t owel between your skin and the blue pad. Use the incentive spirometer often. Take deep breaths throughout the day. Please keep the dressing in place until follow-up. Notify the Clinic if the dressing becomes saturated. Increase your protein intake while you are healing. If you have diabetes, please closely monitor your blood sugars and notify your primary care provider with abnormal values. Elevated blood sugars increases the risk of infection. Call the Clinic with questions or concerns - [phone] and leave a message for the nurse. - Discharge Plan *PRESCRIPTION DRUG MONITORING PROGRAM REVIEWED*: No *COPY OF PRESCRIPTION DRUG MONITORING REPORT IN PATIENT TAL: No Prescriptions/Med Rec: Aspirin [Ecotrin EC] 325 mg PO BID #70 tab.ec Cyclobenzaprine [Flexeril] 5 mg PO BID PRN #10 tablet PRN Reason: Spasms Acetaminophen/oxyCODONE [Percocet 325-5 MG] 1 - 2 tab PO Q6H PRN #60 tablet PRN Reason: Pain Home Medications: Home Meds amLODIPine [Norvasc] 10 mg PO DAILY 04/16/15 [History] Melatonin 5 mg PO BEDTIME PRN 02/18/18 [History] Rosuvastatin Calcium 10 mg PO DAILY 02/18/18 [History] Calcium Carbonate/Vitamin D3 [Calcium 500-Vit D3 200 Caplet] 1 tab PO DAILY 02/21/18 [History] Loratadine [Claritin] 1 tab PO DAILY 02/21/18 [History] Multivitamin [Daily Yue] 1 tab PO DAILY 02/21/18 [History] Ubidecarenone [COQ-10] 100 mg PO DAILY 02/21/18 [History] Ascorbic Acid [Vitamin C] 500 mg PO DAILY 10/20/19 [History] Cholecalciferol (Vitamin D3) [Vitamin D3] 4,000 unit PO DAILY 10/20/19 [History] Estradiol Valerate [Delestrogen] 1 dose TOP DAILY 10/20/19 [History] Pantothenic Acid/Aloe Vera [[place]-Gel] 1 dose PO DAILY 10/20/19 [History] Progesterone, Micronized [Progesterone] 100 mg PO Q48H 10/20/19 [History] Acetaminophen/oxyCODONE [Percocet 325-5 MG] 1 - 2 tab PO Q6H PRN #60 tablet 10/24/19 [Rx] Aspirin [Ecotrin EC] 325 mg PO BID #70 tab.ec 10/24/19 [Rx] Cyclobenzaprine [Flexeril] 5 mg PO BID PRN #10 tablet 10/24/19 [Rx] Docusate Sodium [Colace] 100 mg PO BID cap 10/24/19 [Rx] Famotidine [Pepcid] 20 mg PO Q12H tablet 10/24/19 [Rx] Magnesium Hydroxide [Milk of Magnesia] 30 ml PO BID PRN cup 10/24/19 [Rx] Sennosides [Senna] 8.6 mg PO BID PRN tablet 10/24/19 [Rx] bisacodyL [Dulcolax] 5 mg PO DAILY PRN tablet 10/24/19 [Rx] Patient Handouts: Total Hip Replacement, [id number] Referrals: Rozina Ness PA-C [Physician [employer] Watch [employer]] - (Please follow up with Rozina Ness PA-C on the following dates- October 30 at 11:00 am, November 06 at 11:00 am, and December 04 at 11:00 am .) - Discharge Summary/Plan Comment DC Time >30 min.: No - Patient Data Vitals - Most Recent: Last Vital Signs Temp 100.4 F 10/24/19 13:55 Pulse 103 H 10/24/19 13:55 Resp 16 10/24/19 13:55 BP 92/78 10/24/19 13:55 Pulse Ox 96 10/24/19 13:55 Orthostatic Blood Pressure [ 106/79 Standing 3 minutes] Orthostatic Blood Pressure [ 108/70 Standing] Orthostatic Blood Pressure [ 96/68 Supine] Weight - Most Recent: 130 lb 3.2 oz I&O - Last 24 hours: Intake & Output 10/24/19 10/25/19 10/25/19 22:59 06:59 14:59 Intake Total 1000 Output Total 1550 Balance -550 Med Orders - Current: Current Medications Discontinued Medications Acetaminophen (Tylenol) 975 mg PO ONETIME [facility] Stop: 10/23/19 16:00 Last Admin: 10/23/19 10:34 Dose: 975 mg Documented by: Amlodipine Besylate (Norvasc) 10 mg PO QPM [facility] Last Admin: 10/23/19 17:29 Dose: 10 mg Documented by: Aspirin (Ecotrin) 325 mg PO BID [facility] Last Admin: 10/24/19 09:05 Dose: 325 mg Documented by: Bisacodyl (Dulcolax) 5 mg PO DAILY PRN PRN Reason: Constipation Bupivacaine HCl (Sensorcaine-Mpf 0.25%) Confirm Administered Dose 30 ml .ROUTE .STK-MED ONE Stop: 10/23/19 11:48 Last Admin: 10/23/19 13:17 Dose: 30 ml Documented by: Calcium Carbonate (Calcium Carbonate/Vitamin D 600 Mg-200 Unit) 1 tab PO DAILY@1200 [facility] Last Admin: 10/24/19 11:51 Dose: 1 tab Documented by: Cefazolin Sodium (Ancef) Confirm Administered Dose 2 gm .ROUTE .STK-MED ONE Stop: 10/23/19 11:43 Last Admin: 10/23/19 13:13 Dose: 2 gm Documented by: Cefazolin Sodium (Ancef) Confirm Administered Dose 2 gm .ROUTE .STK-MED ONE Stop: 10/23/19 11:48 Cholecalciferol (Vitamin D3) 100 mcg PO DAILY [facility] Last Admin: 10/24/19 09:06 Dose: Not Given Documented by: Morphine Sulfate 8 mg/Epinephrine HCl 0.3 mg/Cefuroxime Sodium 750 mg/Ketorolac Tromethamine 30 mg/Sodium Chloride 7.9 ml 0 mg .XX ONETIME ONE Stop: 10/23/19 11:01 Last Admin: 10/23/19 13:17 Dose: 788.3 mg Documented by: Cyclobenzaprine HCl (Flexeril) 10 mg PO TID PRN PRN Reason: Spasms Last Admin: 10/24/19 13:22 Dose: 10 mg Documented by: Docusate Sodium (Colace) 100 mg PO BID [facility] Last Admin: 10/24/19 09:04 Dose: 100 mg Documented by: Ephedrine Sulfate (Ephedrine 25 Mg/5 Ml Syringe) Confirm Administered Dose 25 mg IV .STK-MED ONE Stop: 10/23/19 12:34 Famotidine (Pepcid) 20 mg PO Q12H [facility] Last Admin: 10/24/19 09:04 Dose: 20 mg Documented by: Fentanyl (Sublimaze) Confirm Administered Dose 100 mcg .ROUTE .STK-MED ONE Stop: 10/23/19 11:42 Lactated Ringer's (Ringers, Lactated) 1,000 mls @ 125 mls/hr IV ASDIRECTED [facility] Stop: 10/23/19 23:00 Last Admin: 10/23/19 10:45 Dose: 125 mls/hr Documented by: Cefazolin Sodium/Dextrose 2 gm (/ Premix) 50 mls @ 100 mls/hr IV Q8H [facility] Stop: 10/24/19 13:29 Last Admin: 10/24/19 13:22 Dose: 100 mls/hr Documented by: Lidocaine HCl (Xylocaine-Mpf 1%) Confirm Administered Dose 4 mls @ as directed .ROUTE .STK-MED ONE Stop: 10/23/19 11:42 Lactated Ringer's (Ringers, Lactated) Confirm Administered Dose 1,000 mls @ as directed .ROUTE .STK-MED ONE Stop: 10/23/19 12:00 Sodium Chloride (Normal Saline) 500 mls @ 999 mls/hr IV .BOLUS ONE Stop: 10/24/19 10:01 Last Admin: 10/24/19 11:18 Dose: 999 mls/hr Documented by: Iodine (Iodine 2% Mild Tincture) Confirm Administered Dose 30 ml .ROUTE .STK-MED ONE Stop: 10/23/19 11:48 Last Admin: 10/23/19 13:11 Dose: 18 ml Documented by: Ketorolac Tromethamine (Toradol) 15 mg IVPUSH Q6H PRN PRN Reason: Pain Last Admin: 10/24/19 05:46 Dose: 15 mg Documented by: Lidocaine/Sodium Bicarbonate (Buffered Lidocaine 1% In Ns 8.4%) 0.25 ml IDERM ONETIME PRN PRN Reason: Prior to IV Start Stop: 10/23/19 18:00 Last Admin: 10/23/19 10:45 Dose: 0.25 ml Documented by: Loratadine (Claritin) 10 mg PO DAILY [facility] Last Admin: 10/24/19 09:05 Dose: Not Given Documented by: Magnesium Hydroxide (Milk Of Magnesia) 30 ml PO BID PRN PRN Reason: Constipation Midazolam HCl (Versed 1 Mg/Ml) Confirm Administered Dose 2 mg .ROUTE .STK-MED ONE Stop: 10/23/19 11:42 Miscellaneous Medication (Phenylephrine 1 Mg/10 Ml-Ns) Confirm Administered Dose 1 mg IV .STK-MED ONE Stop: 10/23/19 12:53 Morphine Sulfate (Morphine) 2 mg IVPUSH Q2H PRN PRN Reason: Breakthrough Pain Naloxone HCl (Narcan) 0.1 mg IVPUSH Q5M PRN PRN Reason: Oversedation Ondansetron HCl (Zofran) 4 mg IVPUSH Q6H PRN PRN Reason: Nausea/Vomiting Ondansetron HCl (Zofran) Confirm Administered Dose 4 mg .ROUTE .STK-MED ONE Stop: 10/23/19 11:42 Oxycodone HCl (Oxycontin) 10 mg PO ONETIME [facility] Stop: 10/23/19 16:00 Last Admin: 10/23/19 10:34 Dose: 10 mg Documented by: Oxycodone/Acetaminophen (Percocet 325-5 Mg) 1 - 2 tab PO Q4H PRN PRN Reason: Pain Last Admin: 10/24/19 15:47 Dose: 2 tab Documented by: Pregabalin (Lyrica) 25 mg PO ONETIME [facility] Stop: 10/23/19 16:00 Last Admin: 10/23/19 10:35 Dose: 25 mg Documented by: Pregabalin (Lyrica) 25 mg PO ONETIME [facility] Stop: 10/23/19 10:31 Propofol (Diprivan 20 Ml) Confirm Administered Dose 200 mg .ROUTE .STK-MED ONE Stop: 10/23/19 11:42 Propofol (Diprivan 20 Ml) Confirm Administered Dose 200 mg .ROUTE .STK-MED ONE Stop: 10/23/19 12:46 Propofol (Diprivan 20 Ml) Confirm Administered Dose 200 mg .ROUTE .STK-MED ONE Stop: 10/23/19 13:15 Rosuvastatin Calcium (Crestor) 10 mg PO DAILY [facility] Last Admin: 10/24/19 09:04 Dose: 10 mg Documented by: Senna (Senna) 8.6 mg PO BID PRN PRN Reason: Constipation Last Admin: 10/23/19 17:42 Dose: 8.6 mg Documented by: Sodium Chloride (Saline Flush) 10 ml FLUSH ASDIRECTED PRN PRN Reason: Keep Vein Open Stop: 10/23/19 18:00 Tranexamic Acid (Cyklokapron) Confirm Administered Dose 1,000 mg .ROUTE .STK-MED ONE Stop: 10/23/19 11:48 Last Admin: 10/23/19 13:18 Dose: 1,000 mg Documented by: Vancomycin HCl (Vancomycin) Confirm Administered Dose 1 gm .ROUTE .STK-MED ONE Stop: 10/23/19 11:48 Last Admin: 10/23/19 13:18 Dose: 1 gm Documented by:
--- NOTE | 2019-10-30 08:44 | PCM.OPNOTE ---
- General Post-Op/Procedure Note Date of Surgery/Procedure: 10/23/19 Operative Procedure(s): right total hip arthroplasty Pre Op Diagnosis: right hip osteoarthrosis Post-Op Diagnosis: Same Anesthesia Technique: Local, MAC, Spinal Primary Surgeon: Marquez Henning Anesthesia Provider: Rik Lin Air Conditioning Manager: Rozina Ness Air Conditioning Manager: Leta Owens EBValerie in mLs: 400 Complications: None Condition: Good Free Text/Narrative:: 50 cup 36-5 4 stem
--- NOTE | 2019-10-30 09:53 | OR ---
DATE OF OPERATION: 10/23/2019 SURGEON: Marquez Henning MD OPERATION PERFORMED: Right total hip arthroplasty. PREOPERATIVE DIAGNOSIS: Right hip osteoarthrosis. POSTOPERATIVE DIAGNOSIS: Right hip osteoarthrosis. ANESTHESIA: Local MAC with spinal. ANESTHESIA PROVIDER: Cedric Monreal. MARKETING BUDGET ANALYST: Rozina Ness PA-C, and Leta Owens LPN. ESTIMATED BLOOD LOSS: 400 mL. COMPLICATIONS: None. CONDITION: Stable. IMPLANT: 1. [place] size 50 mm solid Tritanium II acetabular cup. 2. [place] size 36 -5 Biolox femoral head. 3. [place] size 4 Accolade II stem. DESCRIPTION OF PROCEDURE: The patient was identified in the preop holding area. Proper site was marked and identified by the surgeon. The patient was taken back to the operating theater where after adequate anesthesia, the patient was placed in a left lateral decubitus position. Axillary roll was placed. Bony prominences were padded. Pegs were then placed and well padded. The patient's gluteal fold was parallel to the floor. Right hip was then sterilely prepped and draped in the usual sterile fashion. OR time-out was performed. The patient received 2 g IV Ancef. Standard posterior incision was made. This was taken down to the IT band and gluteal fascia which was incised along the incisional length. Short external rotators were identified and takedown of the short external rotators as well as capsulotomy was done from the level of the piriformis down to the lesser trochanter. Hip was then dislocated. Neck cut was completed and found to be adequate. Attention was turned to the acetabulum. Anterior and posterior acetabular retractors were placed. Circumferential removal of the labrum as well as the pulvinar was done at this time. Starting with a 46 reamer, I was able to ream up to a 50, which was found to have good adequate bony purchase. A 50 mm Tritanium II acetabular cup was impacted into place in proper position. A 36 mm flat liner was then impacted into place. Attention was turned to the femur. Box chisel was used out laterally. Starter awl was placed down the canal. Starting with the 0 broach, I was able to broach up to a size 4 which was found to be rotationally and vertically stable. A 36 0 was trialed but it was found to be tight, so a 36 -5 was trialed and found to have adequate roman catholic of leg length and was stable throughout range of motion. Bone hook was used to dislocate the hip, size 4 Accolade II stem was then impacted into place, and the 36 mm -5 Biolox femoral head was impacted onto the stem. Hip was then relocated. A #5 Ethibond sutures were then used for closure of the short external rotators and capsule. 1 L dilute Betadine solution was irrigated through the hip along with 3 L pulse lavage irrigation with Ancef. Topical tranexamic acid and vancomycin powder were applied. Periarticular injection was also completed. #2 barbed suture was used for closure of IT band and gluteal fascia, 2-0 Vicryl was used subcutaneously, and Prineo was used for the skin. The patient tolerated the procedure well and sent to PACU in stable condition. KAT /[id number]
== END 2019-10-24 16:15 | disposition home or self-care (01) | DRG 301 ==
LOC: JD.MS 09:56
PROVIDERS: ADMIT Orthopaedic Surgery; ATTEND Orthopaedic Surgery
PROC: 0SR90JZ Replacement of Right Hip Joint with Synthetic Substitute, Open Approach (ICD-10-PCS; principal; 2019-10-23)
DX: M16.11 Unilateral primary osteoarthritis, right hip (principal); I95.81 Postprocedural hypotension; M19.90 Unspecified osteoarthritis, unspecified site; E78.5 Hyperlipidemia, unspecified; I10 Essential (primary) hypertension; F32.9 Major depressive disorder, single episode, unspecified; K21.9 Gastro-esophageal reflux disease without esophagitis; E78.00 Pure hypercholesterolemia, unspecified; G47.00 Insomnia, unspecified; R35.0 Frequency of micturition; J30.9 Allergic rhinitis, unspecified; N95.2 Postmenopausal atrophic vaginitis; H54.7 Unspecified visual loss; N95.9 Unspecified menopausal and perimenopausal disorder; Z96.619 Presence of unspecified artificial shoulder joint; Z96.651 Presence of right artificial knee joint; F32.89 Other specified depressive episodes; Z90.49 Acquired absence of other specified parts of digestive tract; Z90.89 Acquired absence of other organs; Z90.710 Acquired absence of both cervix and uterus; Z79.82 Long term (current) use of aspirin; Z85.828 Personal history of other malignant neoplasm of skin; Z79.899 Other long term (current) drug therapy; Z91.09 Other allergy status, other than to drugs and biological substances; Z87.891 Personal history of nicotine dependence; Z91.040 Latex allergy status; Z20.828 Contact with and (suspected) exposure to other viral communicable diseases
CPT/HCPCS: 01214; 36415; 73501-26-RT; 73501-RT; 80053; 85027; 86850; 86900; 86901; 87641; 97110-GP; 97116-GP; 97161-GP; 97165-GO; 97535-GO; 99221; 99231; A9270-GY; C1776; J0171; J0690; J0697; J1885; J2001; J2250; J2270; J2370; J2405; J2704; J3010; J3370; J3490; J7030; J7120; U0002